=== PATIENT | male | born 1945 | race Caucasian/White ===

== ENCOUNTER 2024-11-24 03:37 | Inpatient (IN) | payer MEDICARE ==
--- NOTE | 2024-11-24 03:58 | ED ---
General Adult HPI - General Chief complaint: Weakness Stated complaint: Difficulty Breathing Time Seen by Provider: 11/24/24 04:00 Source: patient, RN notes reviewed, old records reviewed Mode of arrival: EMS Limitations: no limitations - History of Present Illness Initial comments: Patient is a 79-year-old male with past medical history markable for dementia, CAD, hyperlipidemia, hypertension, tremor. Presented to outside hospital, [place] for altered mentation and hypoxia. This has been ongoing for 2 weeks. Patient was transferred here for further evaluation after being diagnosed with sepsis and pneumonia. Patient presented to the outside facility with 2 SIRS criteria, hypoxia with increased work of breathing as well as fever. Patient was also tachycardic. Patient diagnosed with septic pneumonia and started on IV fluids, broad-spectrum antibiotics cefepime and vancomycin. CT brain obtained at the outside facility negative. Labs otherwise unremarkable. Viral swabs negative. Patient transferred here for further care. He is DNR based on paperwork from outside facility which was confirmed with patient's . Patient currently resting comfortably no acute acute distress. Appears to be at his baseline mental status of ANO x 2-3. Presents for further evaluation. - Related Data Allergies Allergy/AdvReac Type Severity Reaction Status Date / Time No Known Allergies Allergy Verified 11/24/24 03:48 Review of Systems ROS Statement: Those systems with pertinent positive or pertinent negative responses have been documented in the HPI. Review of Systems: CONST: Denies fever EYES: Denies blurry vision ENT: Endorses congestion, cough C/V: Denies Chest pain RESP: Denies shortness of breath GI: Denies abdominal pain : Denies dysuria SKIN: Denies rash. MSK: Denies joint pain. NEURO: Denies headache ROS Other: All systems not noted in ROS Statement are negative. Past Medical History Past Medical History: Diabetes Mellitus, Hypertension, Renal Disease Additional Past Medical History / Comment(s): neuropathy, CKD, sleep apnea History of Any Multi-Drug Resistant Organisms: None Reported Additional Past Surgical History / Comment(s): neck surgery, Past Psychological History: Anxiety, Depression Smoking Status: Former smoker Past Alcohol Use History: None Reported Past Drug Use History: None Reported General Exam - General Exam Comments Initial Comments: General: Appears in no acute distress. HEAD: Normal with no signs of head trauma. EYES: PERRLA, EOMI, conjunctiva normal, no discharge. ENT: Hearing grossly intact, normal oropharynx. RESPIRATORY: Clear breath sounds bilaterally. No wheezes, rales, or rhonchi. Hypoxic on room air. Normoxic on 2 L nasal cannula oxygen. C/V: Regular rate and rhythm. S1 and S2 auscultated, no edema, peripheral pulses 2+ and intact throughout ABD: Abd is soft, nontender, nondistended EXT: Normal range of motion, no obvious deformity SKIN: No rashes or lesions observed on exposed skin. NEURO: Alert and oriented x 2-3 which is the baseline for him. Cranial nerves II-XII intact. No focal sensory or strength deficits. Limitations: no limitations Course Vital Signs 11/24/24 03:39 Temperature 97.6 F Pulse Rate 99 Respiratory 16 Rate Blood Pressure 132/98 O2 Sat by Pulse 96 Oximetry Medical Decision Making - Medical Decision Making Was pt. sent in by a medical professional or institution (, JOCELYN, CLINICAL REHABILITATION COORDINATOR, urgent care, hospital, or snf...) When possible be specific @ -No Did you speak to anyone other than the patient for history (EMS, parent, family, police, friend...)? What history was obtained from this source @ -Spoke with patient's , Yaima over the phone who confirmed patient is DNR and also corroborated the note from [facility]. Did you review nursing and triage notes (agree or disagree)? Why? @ -I reviewed and agree with nursing and triage notes Were old charts reviewed (outside hosp., previous admission, EMS record, old EKG, old radiological studies, urgent care reports/EKG's, snf records)? Report findings @ -Reviewed transfer paperwork from [facility]. This includes CT brain results which showed no evidence of acute intracranial process. Also of the workup which ultimately revealed patient's sepsis diagnosis from pneumonia. Patient has bibasilar pneumonia read on chest x-ray. Differential Diagnosis (chest pain, altered mental status, abdominal pain women, abdominal pain men, vaginal bleeding, weakness, fever, dyspnea, syncope, headache, dizziness, GI bleed, back pain, seizure, CVA, palpatations, mental health, musculoskeletal)? @ -Sepsis, pneumonia, COVID, flu, RSV. This list is not all inclusive. EKG interpreted by me (3pts min.). @ -As above X-rays interpreted by me (1pt min.). @ -None done CT interpreted by me (1pt min.). @ -None done U/S interpreted by me (1pt. min.). @ -None done What testing was considered but not performed or refused? (CT, X-rays, U/S, labs)? Why? @ -None What meds were considered but not given or refused? Why? @ -None Did you discuss the management of the patient with other professionals (professionals i.e. , PA, CLINICAL REHABILITATION COORDINATOR, lab, RT, psych nurse, social work nurse, stonework tracer, teacher, structural engineering drafting officer, counseling case manager)? Give summary @ -Discussed with admitting provider, ELLI Delgado of [facility] who accepted the patient. Was smoking cessation discussed for >3mins.? @ -No Was critical care preformed (if so, how long)? @ -Yes, 31 minutes. Were there social determinants of health that impacted care today? How? (Homelessness, low income, unemployed, alcoholism, drug addiction, transportation, low edu. Level, literacy, decrease access to med. care, usp, rehab)? @ -No Was there de-escalation of care discussed even if they declined (Discuss DNR or withdrawal of care, Hospice)? DNR status @ -No What co-morbidities impacted this encounter? (DM, HTN, Smoking, COPD, CAD, Cancer, CVA, ARF, Chemo, Hep., AIDS, mental health diagnosis, sleep apnea, morbid obesity)? @ -Dementia Was patient admitted / discharged? Hospital course, mention meds given and route, prescriptions, significant lab abnormalities, going to OR and other pertinent info. @ -Patient is a 79-year-old male transferred from [facility] for admission for hypoxic respiratory failure from pneumonia. Patient did meet sepsis criteria with 2 SIRS criteria, having a fever as well as tachycardia and increased work of breathing at the outside facility. Labs at the outside facility were reviewed, revealed normal lactic acid, negative viral swabs, no leukocytosis. Chest x-ray showed bibasilar infiltrates. CT brain unremarkable. Blood cultures were sent and patient was placed on vancomycin and cefepime as well as received 2 L fluid bolus and placed on maintenance fluids. Presents for further evaluation at this time. Patient is feeling improved at this time, with no acute distress. He is currently afebrile vitals are within acceptable limits on 2 L nasal cannula oxygen. Patient will be admitted to our facility. We will repeat basic labs and continue patient on vancomycin and cefepime. We also continued the patient on maintenance fluids at 130 cc an hour. I spoke with the patient's , Yaima who corroborated the visit at [facility] as well as confirmed patient is DO NOT RESUSCITATE. I spoke with the admitting provider, ELLI Delgado of [facility] who accepted the admission. Laboratory studies returned unremarkable including undetectable troponin. Troponin was difficult to obtain at outside facility due to lab issues. Undiagnosed new problem with uncertain prognosis? @ -No Drug Therapy requiring intensive monitoring for toxicity (Heparin, Nitro, Insulin, Cardizem)? @ -No Were any procedures done? @ -No Diagnosis/symptom? @ -Hypoxic respiratory failure from pneumonia, sepsis Acute, or Chronic, or Acute on Chronic? @ -Acute Uncomplicated (without systemic symptoms) or Complicated (systemic symptoms)? @ -Complicated Side effects of treatment? @ -No Exacerbation, Progression, or Severe Exacerbation? @ -No Poses a threat to life or bodily function? How? (Chest pain, [place], [place], pneumonia, PE, COPD, DKA, ARF, appy, cholecystitis, CVA, Diverticulitis, Homicidal, Suicidal, threat to staff... and all critical care pts) @ -Yes - Lab Data Result diagrams: 11/24/24 04:00 11/24/24 04:00 Lab Results 11/24/24 11/24/24 11/24/24 Range/Units 04:00 04:00 04:15 WBC 10.0 (3.8-10.6) k/uL RBC 3.52 L (4.30-5.90) m/uL Hgb 9.4 L (13.0-17.5) gm/dL Hct 29.1 L (39.0-53.0) % MCV 82.7 (80.0-100.0) fL MCH 26.8 (25.0-35.0) pg MCHC 32.4 (31.0-37.0) g/dL RDW 13.6 (11.5-15.5) % Plt Count 320 (150-450) k/uL MPV 8.1 Neutrophils % 72 % Lymphocytes % 16 % Monocytes % 9 % Eosinophils % 1 % Basophils % 0 % Neutrophils # 7.3 (1.3-7.7) k/uL Lymphocytes # 1.6 (1.0-4.8) k/uL Monocytes # 0.9 (0-1.0) k/uL Eosinophils # 0.1 (0-0.7) k/uL Basophils # 0.0 (0-0.2) k/uL Hypochromasia Slight Sodium 135 L (137-145) mmol/L Potassium 3.8 (3.5-5.1) mmol/L Chloride 97 L (98-107) mmol/L Carbon Dioxide 33 H (22-30) mmol/L Anion Gap 5 mmol/L BUN 8 L (9-20) mg/dL Creatinine 0.95 (0.66-1.25) mg/dL Est GFR (CKD-EPI)AfAm 88 (>60 ml/min/1.73 sqM) Est GFR (CKD-EPI)NonAf 76 (>60 ml/min/1.73 sqM) Glucose 132 H (74-99) mg/dL Plasma Lactic Acid Travon (0.7-2.0) mmol/L Calcium 9.6 (8.4-10.2) mg/dL Total Bilirubin 0.9 (0.2-1.3) mg/dL AST 18 (17-59) U/L ALT 14 (4-49) U/L Alkaline Phosphatase 143 H (38-126) U/L Troponin I <0.012 (0.000-0.034) ng/mL Total Protein 5.2 L (6.3-8.2) g/dL Albumin 2.3 L (3.5-5.0) g/dL 11/24/24 Range/Units 04:15 WBC (3.8-10.6) k/uL RBC (4.30-5.90) m/uL Hgb (13.0-17.5) gm/dL Hct (39.0-53.0) % MCV (80.0-100.0) fL MCH (25.0-35.0) pg MCHC (31.0-37.0) g/dL RDW (11.5-15.5) % Plt Count (150-450) k/uL MPV Neutrophils % % Lymphocytes % % Monocytes % % Eosinophils % % Basophils % % Neutrophils # (1.3-7.7) k/uL Lymphocytes # (1.0-4.8) k/uL Monocytes # (0-1.0) k/uL Eosinophils # (0-0.7) k/uL Basophils # (0-0.2) k/uL Hypochromasia Sodium (137-145) mmol/L Potassium (3.5-5.1) mmol/L Chloride (98-107) mmol/L Carbon Dioxide (22-30) mmol/L Anion Gap mmol/L BUN (9-20) mg/dL Creatinine (0.66-1.25) mg/dL Est GFR (CKD-EPI)AfAm (>60 ml/min/1.73 sqM) Est GFR (CKD-EPI)NonAf (>60 ml/min/1.73 sqM) Glucose (74-99) mg/dL Plasma Lactic Acid Travon 1.0 (0.7-2.0) mmol/L Calcium (8.4-10.2) mg/dL Total Bilirubin (0.2-1.3) mg/dL AST (17-59) U/L ALT (4-49) U/L Alkaline Phosphatase (38-126) U/L Troponin I (0.000-0.034) ng/mL Total Protein (6.3-8.2) g/dL Albumin (3.5-5.0) g/dL - EKG Data -: EKG Interpreted by Me EKG Comments: 12-lead Electrocardiogram Interpretation Note EKG was reviewed and interpreted by myself. 12-lead ECG performed at 0352 is interpreted by me as revealing sinus tachycardia with first-degree AV block at a rate of 101 beats per minute. Allen is normal. [place] interval is 225 ms, QRS duration is 97 ms, QTc is 423 ms.. There were no ST or T wave abnormalities to suggest myocardial ischemia or injury. R wave progression across the precordium was satisfactory. By my interpretation this EKG is non-diagnostic for acute ischemia. Critical Care Time Critical Care Time: Yes Total Critical Care Time: 31 Disposition Clinical Impression: Hypoxic respiratory failure, Pneumonia, Sepsis Disposition: ADMITTED IP TO THIS HOSP Condition: Serious Time of Disposition: 04:20
[2024-11-24] MEDS: LACTATED RINGERS 1,000 ML IV ONE (04:04)
[2024-11-24] MEDS ORDERED: VANCOMYCIN IV PER PHARMACY 1 EACH MISC MISCELLANE PRN (04:10)
[2024-11-24 04:17] LABS: Basophils % (A) 0 %; Eosinophils # (A) 0.1 k/uL (0-0.7); Eosinophils % (A) 1 %; HCT 29.1 % (39.0-53.0); HGB 9.4 gm/dL (13.0-17.5); Hypochromasia Slight; Lymphocytes # (A) 1.6 k/uL (1.0-4.8); Lymphocytes % (A) 16 %; MCH 26.8 pg (25.0-35.0); MCHC 32.4 g/dL (31.0-37.0); MCV 82.7 fL (80.0-100.0); Mean Platelet Volume 8.1; Monocytes # (A) 0.9 k/uL (0-1.0); Monocytes % (A) 9 %; Neutrophils # (A) 7.3 k/uL (1.3-7.7); Neutrophils % (A) 72 %; Platelet Count 320 k/uL (150-450); RBC 3.52 m/uL (4.30-5.90); RDW 13.6 % (11.5-15.5)
[2024-11-24] MEDS ORDERED: NALOXONE 0.4 MG/ML 1 ML VIAL IV PRN (04:19)
[2024-11-24] MEDS ORDERED: ONDANSETRON 4 MG/2 ML VIAL IVP PRN (04:19)
[2024-11-24] MEDS: CEFEPIME 2 GM in SODIUM CHLORIDE 0.9% 100 ML IVPB STA (04:32)
[2024-11-24 04:42] LABS: ALT 14 U/L (4-49); AST 18 U/L (17-59); African American GFR (CKD) 88 (>60 ml/min/1.73 sqM); Albumin 2.3 g/dL (3.5-5.0); Alkaline Phosphatase 143 U/L (38-126); Anion Gap 5 mmol/L; Blood Urea Nitrogen 8 mg/dL (9-20); Calcium 9.6 mg/dL (8.4-10.2); Carbon Dioxide 33 mmol/L (22-30); Chloride 97 mmol/L (98-107); Glucose 132 mg/dL (74-99); Non-African American GFR(CKD) 76 (>60 ml/min/1.73 sqM); Potassium 3.8 mmol/L (3.5-5.1); Sodium 135 mmol/L (137-145); Total Bilirubin 0.9 mg/dL (0.2-1.3); Total Protein 5.2 g/dL (6.3-8.2)
[2024-11-24] MEDS: VANCOMYCIN 1,500 MG in SODIUM CHLORIDE 0.9% 250 ML IVPB STA (04:47)
[2024-11-24] MEDS: VANCOMYCIN 1,500 MG in SODIUM CHLORIDE 0.9% 500 ML IVPB STA (05:48)
[2024-11-24] MEDS ORDERED: CEFEPIME 2 GM in SODIUM CHLORIDE 0.9% 100 ML IVPB SCH ×2 (06:00→08:00)
[2024-11-24] MEDS: HEPARIN SODIUM,PORCINE 5,000 UNIT/ML 1 ML VIAL SQ SCH ×2 (08:08→17:36)
[2024-11-24 10:46] LABS: Influenza A Not Detected (Not Detectd); Influenza B Not Detected (Not Detectd); RSV Not Detected (Not Detectd)
--- NOTE | 2024-11-24 14:04 | P.CNPUL ---
History of Present Illness Consult date: 11/24/24 Reason for consult: dyspnea History of present illness: This is a 79-year-old male patient, a very poor historian with underlying dementia who presents from [facility] for bilateral pneumonia. The patient apparently has been feeling sick for the past 1 week at least. Family noted that he has been slightly more confused and he has been having labored breathing and was somewhat tachycardic. Based on that, the patient was started on broad-spectrum antibiotics in the outside facility and he was transferred to us. CAT scan of the brain that was done outside facility showed no acute abnormalities. I repeated the chest x-ray in the emergency department and based on my review, the patient has evidence of COPD and possibility of limited bibasilar pulmonary filtrates cannot be completely ruled out. Viral 4 Plex has been negative. Troponin has been negative. Sodium levels at 135, bicarbonate 33 BUN of 8 creatinine 0.9. LFTs are normal. White cell count of 10 with a hemoglobin 9.4. He was started on broad-spectrum antibiotics and the patient is currently on a combination of cefepime and vancomycin. The patient himself denies having any shortness of breath. He is currently on 2 L of oxygen by nasal cannula with pulse ox of 97%. Afebrile. Hemodynamically stable. Pulse ox on room air is 95%. Cultures were sent. Hospitalized for pneumonia. No edema in lower extremities. He is known to have CAD, hyperlipidemia, hypertension along with history of dementia. He also admits to have a previous neck surgery. He does have an abdominal wall ventral hernia. Review of Systems Constitutional: Reports as per HPI Eyes: denies as per HPI, denies blurred vision, denies bulging eye, denies decreased vision, denies diplopia, denies discharge, denies dry eye, denies irritation, denies itching, denies pain, denies photophobia, denies loss of peripheral vision, denies loss of vision, denies tunnel vision/blind spots Ears: deny: decreased hearing, ear discharge, earache, tinnitus Ears, nose, mouth and throat: Reports as per HPI Breasts: absent: as per HPI, gynecomastia Cardiovascular: Reports as per HPI Respiratory: Reports as per HPI Gastrointestinal: Reports as per HPI Genitourinary: Reports as per HPI Musculoskeletal: absent: ankle pain, ankle stiffness, ankle swelling, as per HPI, elbow pain, elbow stiffness, elbow swelling, foot pain, foot stiffness, foot swelling, hand pain, hand stiffness, hand swelling, hip pain, hip stiffness, hip swelling, knee pain, knee stiffness, knee swelling, shoulder pain, shoulder stiffness, shoulder swelling, wrist pain, wrist stiffness, wrist swelling Integumentary: Reports as per HPI Neurological: Reports as per HPI Psychiatric: Reports as per HPI Endocrine: Reports as per HPI Hematologic/Lymphatic: Reports as per HPI Allergic/Immunologic: Reports as per HPI Past Medical History Past Medical History: Coronary Artery Disease (CAD), Diabetes Mellitus, Hyperlipidemia, Hypertension Additional Past Medical History / Comment(s): neuropathy, ANABELA, Dementia, ventral abdominal hernia History of Any Multi-Drug Resistant Organisms: None Reported Additional Past Surgical History / Comment(s): neck surgery Past Psychological History: Anxiety, Depression Smoking Status: Former smoker Past Alcohol Use History: None Reported Past Drug Use History: None Reported Medications and Allergies Home Medications Medication Instructions Recorded Confirmed Type Citalopram Hydrobromide [CeleXA] 20 mg PO DAILY 11/24/24 11/24/24 History Gabapentin [Neurontin] 400 mg PO BID 11/24/24 11/24/24 History Metoprolol Succinate (ER) [Toprol 100 mg PO DAILY 11/24/24 11/24/24 History Xl] Simvastatin [Zocor] 80 mg PO DAILY 11/24/24 11/24/24 History allopurinoL [Zyloprim] 100 mg PO DAILY 11/24/24 11/24/24 History amLODIPine [Norvasc] 2.5 mg PO DAILY 11/24/24 11/24/24 History metFORMIN HCL 500 mg PO DAILY 11/24/24 11/24/24 History traMADol HCL 50 mg PO BID 11/24/24 11/24/24 History Allergies Allergy/AdvReac Type Severity Reaction Status Date / Time No Known Allergies Allergy Verified 11/24/24 09:15 Physical Exam Vitals: Vital Signs Temp Pulse Resp BP Pulse Ox 11/24/24 07:38 98.4 F 99 22 137/77 97 11/24/24 05:00 99 16 111/86 97 11/24/24 04:46 102 H 16 101/86 97 11/24/24 03:39 97.6 F 99 16 132/98 96 Intake and Output 0111/24/24 11/24/24 22:59 06:59 14:59 Other: Weight 97.976 kg The patient appeared well nourished and normally developed. Vital signs as documented. Currently on 2 L of oxygen by nasal cannula Head exam is unremarkable. No scleral icterus or corneal arcus noted. Neck is without jugular venous distension, thyromegaly, or carotid bruits. Carotid upstrokes are brisk bilaterally. Lungs diminished breath sound bilaterally along with few scattered expiratory rhonchi wheeze Cardiac exam reveals the PMI to be normally sized and situated. Rhythm is regular. First and second heart sounds normal. No murmurs, rubs or gallops. Abdominal exam reveals normal bowel sounds, no masses, no organomegaly and no aortic enlargement. Extremities are nonedematous and both femoral and pedal pulses are normal. Examination of the skin revealed no evidence of significant rashes, suspicious appearing nevi or other concerning lesions. Neurologically, the patient is awake and alert and the patient does not have any focal neurological deficit. Cranial nerves are essentially intact. Poor historian, some cognitive impairment. Results - Laboratory Findings CBC and BMP: 11/24/24 04:00 11/24/24 04:00 Abnormal lab findings: Abnormal Labs 11/24/24 11/24/24 04:00 04:00 RBC 3.52 L Hgb 9.4 L Hct 29.1 L Sodium 135 L Chloride 97 L Carbon Dioxide 33 H BUN 8 L Glucose 132 H Alkaline Phosphatase 143 H Total Protein 5.2 L Albumin 2.3 L - Diagnostic Findings Chest x-ray: image reviewed Assessment and Plan Plan: Right lower lobe/bibasilar pneumonia, chronicity is unknown. COPD with bilateral emphysematous changes based on chest x-ray findings Acute hypoxic respiratory failure currently on 2 L of oxygen by nasal cannula Dementia Coronary artery disease which is currently inactive and stable. Cardiac rhythm is sinus Diabetes mellitus type 2 Hypertension Hyperlipidemia Diabetic peripheral neuropathy Ventral abdominal wall hernia Plan Obtain sputum Gram stain and culture Obtain blood cultures Procalcitonin level Continue current robotic coverage Provide DuoNeb nebulized treatments [id number] Resume home medications Will follow
--- NOTE | 2024-11-24 14:08 | XR ---
EXAMINATION TYPE: XR chest 2V DATE OF EXAM: 11/24/2024 1:55 PM COMPARISON: 11/23/2024 [facility] CLINICAL INDICATION: Male, 79 years old with history of Pneumonia, TECHNIQUE: XR chest 2V view(s) obtained. FINDINGS: The heart size is normal. The pulmonary vasculature is normal. There may be some mild infiltrate in the right lower lobe. Some minimal subsegmental atelectasis at t he left base.. IMPRESSION: 1. Mild bibasilar infiltrates. Correlate for subsegmental atelectasis or developing pneumonia. Follow -up can be performed as clinically indicated. [facility], , 11/24/2024 2:05 PM
[2024-11-24] MEDS: CEFEPIME 2 GM in SODIUM CHLORIDE 0.9% 100 ML IVPB SCH (14:13)
[2024-11-24] MEDS: GABAPENTIN 400 MG CAP PO SCH (14:14)
--- NOTE | 2024-11-24 14:15 | P.HPIM ---
History of Present Illness Patient was on 79-year-old male with known history of dementia with baseline mental status alert oriented x 3 and presently alert oriented x 3 was transferred from [facility] as he had some altered mental status today and was believed to have bilateral pneumonia. Patient apparently had fever yesterday patient had a chest x-ray here which showed likely atelectasis in the right lower lobe. Patient does not have any labored breathing at this time. Patient was started on cefepime and vancomycin was subsequently transferred here patient is able to provide good history to me. Cultures were sent. Patient had a CAT scan of the brain that was done at outside hospital which is essentially within normal limits no acute changes. REVIEW OF SYSTEMS: All other systems are negative except those mentioned in the HPI PHYSICAL EXAMINATION: GENERAL: The patient is alert and oriented x2, not in any acute distress. Well developed, well nourished. HEENT: Pupils are round and equally reacting to light. EOMI. No scleral icterus. No conjunctival pallor. Normocephalic, atraumatic. No pharyngeal erythema. No thyromegaly. CARDIOVASCULAR: S1 and S2 present. No murmurs, rubs, or gallops. PULMONARY: Chest is clear to auscultation, no wheezing or crackles. ABDOMEN: Soft, nontender, nondistended, normoactive bowel sounds. No palpable organomegaly. MUSCULOSKELETAL: No joint swelling or deformity. EXTREMITIES: No cyanosis, clubbing, or pedal edema. NEUROLOGICAL: Gross neurological examination did not reveal any focal deficits. SKIN: No rashes. Assessment and plan -Altered mental status probably secondary to fever which resolved at this time. -Possibility of pneumonia: There is right lower lung field atelectasis and I cannot rule out pneumonia procalcitonin will be ordered vancomycin and cefepime will be discontinued and patient will be started on ceftriaxone and azithromycin, incentive spirometry will be ordered -Dementia patient mental status at this time is at his baseline patient appears to have moderate dementia -Coronary disease -Type 2 diabetes mellitus -Hypertension -Diabetic peripheral neuropathy for which patient is on gabapentin which will make it as needed as patient confusion improved DVT prophylaxis: Subcutaneous heparin Past Medical History Past Medical History: Coronary Artery Disease (CAD), Diabetes Mellitus, Hyper lipidemia, Hypertension Additional Past Medical History / Comment(s): neuropathy, ANABELA, Dementia, ventral abdominal hernia History of Any Multi-Drug Resistant Organisms: None Reported Additional Past Surgical History / Comment(s): neck surgery Past Psychological History: Anxiety, Depression Smoking Status: Former smoker Past Alcohol Use History: None Reported Past Drug Use History: None Reported Medications and Allergies Home Medications Medication Instructions Recorded Confirmed Type Citalopram Hydrobromide [CeleXA] 20 mg PO DAILY 11/24/24 11/24/24 History Gabapentin [Neurontin] 400 mg PO BID 11/24/24 11/24/24 History Metoprolol Succinate (ER) [Toprol 100 mg PO DAILY 11/24/24 11/24/24 History Xl] Simvastatin [Zocor] 80 mg PO DAILY 11/24/24 11/24/24 History allopurinoL [Zyloprim] 100 mg PO DAILY 11/24/24 11/24/24 History amLODIPine [Norvasc] 2.5 mg PO DAILY 11/24/24 11/24/24 History metFORMIN HCL 500 mg PO DAILY 11/24/24 11/24/24 History traMADol HCL 50 mg PO BID 11/24/24 11/24/24 History Allergies Allergy/AdvReac Type Severity Reaction Status Date / Time No Known Allergies Allergy Verified 11/24/24 09:15 Physical Exam Vitals: Vital Signs Temp Pulse Resp BP Pulse Ox 11/24/24 11:57 98 17 131/78 95 11/24/24 07:38 98.4 F 99 22 137/77 97 11/24/24 05:00 99 16 111/86 97 11/24/24 04:46 102 H 16 101/86 97 11/24/24 03:39 97.6 F 99 16 132/98 96 Intake and Output 11/23/24 11/24/24 11/24/24 22:59 06:59 14:59 Other: Weight 97.976 kg Results CBC & Chem 7: 11/24/24 04:00 11/24/24 04:00 Labs: Abnormal Lab Results - Last 24 Hours (Table) 11/24/24 11/24/24 Range/Units 04:00 04:00 RBC 3.52 L (4.30-5.90) m/uL Hgb 9.4 L (13.0-17.5) gm/dL Hct 29.1 L (39.0-53.0) % Sodium 135 L (137-145) mmol/L Chloride 97 L (98-107) mmol/L Carbon Dioxide 33 H (22-30) mmol/L BUN 8 L (9-20) mg/dL Glucose 132 H (74-99) mg/dL Alkaline Phosphatase 143 H (38-126) U/L Total Protein 5.2 L (6.3-8.2) g/dL Albumin 2.3 L (3.5-5.0) g/dL
[2024-11-24] MEDS: METOPROLOL SUCCINATE (ER) 100 MG TAB.ER.24H PO SCH (14:58)
[2024-11-24] MEDS: AZITHROMYCIN 500 MG TAB PO SCH (14:58)
[2024-11-24] MEDS: metFORMIN 500 MG TAB PO SCH (14:58)
[2024-11-24] MEDS: CITALOPRAM HYDROBROMIDE 20 MG TAB PO SCH (14:58)
[2024-11-24 16:42] LABS: Glucose,Whole Blood 153 mg/dL (70-110)
[2024-11-24] MEDS: IPRATROPIUM-ALBUTEROL 3 ML NEB INHALATION SCH (17:14)
[2024-11-24] MEDS ORDERED: VANCOMYCIN 1,500 MG in SODIUM CHLORIDE 0.9% 500 ML 500 ML IVPB SCH (18:00)
[2024-11-24 21:15] LABS: Glucose,Whole Blood 153 mg/dL (70-110)
[2024-11-24] MEDS: ZINC OXIDE PASTE (Z-GUARD) 1 APPLIC TOPICAL SCH (23:20)
[2024-11-25 09:30] LABS: Basophils # (A) 0.03 X 10*3/uL (0.00-0.10); Basophils % (A) 0.3 %; Eosinophils # (A) 0.03 X 10*3/uL (0.04-0.35); Eosinophils % (A) 0.3 %; HCT 30.6 % (39.6-50.0); HGB 9.4 g/dL (13.0-17.0); Lymphocytes # (A) 0.81 X 10*3/uL (0.90-5.00); MCH 25.5 pg (27.0-32.0); MCHC 30.7 g/dL (32.0-37.0); MCV 82.9 FL (80.0-97.0); Mean Platelet Volume 10.4 FL (9.5-12.2); Monocytes # (A) 1.36 X 10*3/uL (0.20-1.00); Monocytes % (A) 13.4 %; NRBC Per 100 WBC 0 X 10*3/uL (0.00-0.01); Neutrophils # (A) 7.85 X 10*3/uL (1.80-7.70); Neutrophils % (A) 77.2 %; Platelet Count 351 X 10*3/uL (140-440); RBC 3.69 X 10*6/uL (4.40-5.60); RDW 13.5 % (11.5-14.5); WBC 10.16 X 10*3/uL (4.50-10.00)
[2024-11-25 09:40] LABS: BUN/Creat Ratio 8.33 Ratio (12.00-20.00); Blood Urea Nitrogen 7.5 mg/dL (9.0-27.0); Chloride 97 mmol/L (96-109); Glucose 144 mg/dL (70-110); Potassium 3.4 mmol/L (3.5-5.5); Sodium 138 mmol/L (135-145)
[2024-11-25 09:41] LABS: ALT 13 U/L (10-49); AST 17 U/L (14-35); Albumin 2.7 g/dL (3.8-4.9); Albumin/Globulin Ratio 1.04 Ratio (1.60-3.17); Alkaline Phosphatase 135 U/L (41-126); Calcium 9.8 mg/dL (8.7-10.3); Carbon Dioxide 28.4 mmol/L (21.6-31.8); Globulin 2.6 g/dL (1.6-3.3); Total Bilirubin 0.7 mg/dL (0.3-1.2); Total Protein 5.3 g/dL (6.2-8.2)
--- NOTE | 2024-11-25 09:58 | XR ---
EXAMINATION TYPE: XR chest 1V DATE OF EXAM: 11/25/2024 6:50 AM COMPARISON: 11/24/2024 CLINICAL INDICATION: Male, 79 years old with history of pneumonia, TECHNIQUE: XR chest 1V view(s) obtained. FINDINGS: The heart size is normal. The pulmonary vasculature is normal. Left lower lobe infiltrate has resolved. Mild residual may remain at the right base. IMPRESSION: 1. Mild residual right lower lobe infiltrate [facility], , 11/25/2024 9:55 AM
[2024-11-25] MEDS: allopurinoL 100 MG TAB PO SCH (11:03)
[2024-11-25] MEDS: ATORVASTATIN 40 MG TAB PO SCH (11:04)
[2024-11-25] MEDS: GABAPENTIN 400 MG CAP PO PRN (11:09)
[2024-11-25] MEDS: ACETAMINOPHEN TAB 325 MG TAB PO PRN (11:09)
[2024-11-25 11:36] LABS: Glucose,Whole Blood 169 mg/dL (70-110)
--- NOTE | 2024-11-25 13:13 | P.PN ---
Subjective Progress Note Date: 11/25/24 This is a 79-year-old male patient, a very poor historian with underlying dementia who presents from [facility] for bilateral pneumonia. The patient apparently has been feeling sick for the past 1 week at least. Family noted that he has been slightly more confused and he has been having labored breathing and was somewhat tachycardic. Based on that, the patient was started on broad-spectrum antibiotics in the outside facility and he was transferred to us. CAT scan of the brain that was done outside facility showed no acute abnormalities. I repeated the chest x-ray in the emergency department and based on my review, the patient has evidence of COPD and possibility of limited bibasilar pulmonary filtrates cannot be completely ruled out. Viral 4 Plex has been negative. Troponin has been negative. Sodium levels at 135, bicarbonate 33 BUN of 8 creatinine 0.9. LFTs are normal. White cell count of 10 with a hemoglobin 9.4. He was started on broad-spectrum antibiotics and the patient is currently on a combination of cefepime and vancomycin. The patient himself denies having any shortness of breath. He is currently on 2 L of oxygen by nasal cannula with pulse ox of 97%. Afebrile. Hemodynamically stable. Pulse ox on room air is 95%. Cultures were sent. Hospitalized for pneumonia. No edema in lower extremities. He is known to have CAD, hyperlipidemia, hypertension along with history of dementia. He also admits to have a previous neck surgery. He does have an abdominal wall ventral hernia. 11/25/2024, patient is being seen for a follow-up. This 79-year-old male patient, has underlying dementia. He was hospitalized for pneumonia. He did have some limited sensation of the lung base bilaterally and he was placed on a combination of Zosyn and vancomycin. Repeat chest x-ray from today shows some mild residual right lower lobe pulmonary filtrate. Left lower lobe pulmonary filtrate is essentially covered. He is resting comfortably in bed. Remains a poor historian. Remains on 2 L of oxygen by nasal cannula. The white cell count is at 7 with a hemoglobin 9.4. The platelet count is at 351. Sodium is at 138, BUN is at 7.5 with a creatinine of 0.9. Hemodynamically stable. Denies having any complaints. Objective - Vital Signs Vital signs: Vital Signs Temp 98.6 F 11/25/24 07:50 Pulse 90 11/25/24 09:30 Resp 16 11/25/24 07:50 BP 147/73 11/25/24 07:50 Pulse Ox 93 L 11/25/24 07:50 FiO2 Intake & Output 11/24/24 11/25/24 11/25/24 18:59 06:59 18:59 Intake Total 250 Balance 250 Weight 97.976 kg Intake: Oral 250 Other: Voiding Method Toilet Toilet # Voids 5 3 # Bowel Movements 1 - Exam The patient appeared well nourished and normally developed. Vital signs as doc umented. Currently on 2 L of oxygen by nasal cannula Head exam is unremarkable. No scleral icterus or corneal arcus noted. Neck is without jugular venous distension, thyromegaly, or carotid bruits. Carotid upstrokes are brisk bilaterally. Lungs diminished breath sound bilaterally along with few scattered expiratory rhonchi wheeze Cardiac exam reveals the PMI to be normally sized and situated. Rhythm is regular. First and second heart sounds normal. No murmurs, rubs or gallops. Abdominal exam reveals normal bowel sounds, no masses, no organomegaly and no aortic enlargement. Extremities are nonedematous and both femoral and pedal pulses are normal. Examination of the skin revealed no evidence of significant rashes, suspicious appearing nevi or other concerning lesions. Neurologically, the patient is awake and alert and the patient does not have any focal neurological deficit. Cranial nerves are essentially intact. Poor historian, some cognitive impairment. - Labs CBC & Chem 7: 11/25/24 03:42 11/25/24 03:42 Labs: Abnormal Lab Results - Last 24 Hours (Table) 11/24/24 11/24/24 11/25/24 Range/Units 16:41 21:13 03:42 WBC 10.16 H (4.50-10.00) X 10*3/uL RBC 3.69 L (4.40-5.60) X 10*6/uL Hgb 9.4 L (13.0-17.0) g/dL Hct 30.6 L (39.6-50.0) % MCH 25.5 L (27.0-32.0) pg MCHC 30.7 L (32.0-37.0) g/dL Immature Gran # 0.08 H (0.00-0.04) X 10*3/uL Neutrophils # 7.85 H (1.80-7.70) X 10*3/uL Lymphocytes # 0.81 L (0.90-5.00) X 10*3/uL Monocytes # 1.36 H (0.20-1.00) X 10*3/uL Eosinophils # 0.03 L (0.04-0.35) X 10*3/uL Potassium (3.5-5.5) mmol/L Anion Gap (4.00-12.00) mmol/L BUN (9.0-27.0) mg/dL BUN/Creatinine Ratio (12.00-20.00) Ratio Glucose (70-110) mg/dL POC Glucose (mg/dL) 153 H 153 H (70-110) mg/dL Alkaline Phosphatase (41-126) U/L Total Protein (6.2-8.2) g/dL Albumin (3.8-4.9) g/dL Albumin/Globulin Ratio (1.60-3.17) Ratio /11/07 Range/Units 03:42 WBC (4.50-10.00) X 10*3/uL RBC (4.40-5.60) X 10*6/uL Hgb (13.0-17.0) g/dL Hct (39.6-50.0) % MCH (27.0-32.0) pg MCHC (32.0-37.0) g/dL Immature Gran # (0.00-0.04) X 10*3/uL Neutrophils # (1.80-7.70) X 10*3/uL Lymphocytes # (0.90-5.00) X 10*3/uL Monocytes # (0.20-1.00) X 10*3/uL Eosinophils # (0.04-0.35) X 10*3/uL Potassium 3.4 L (3.5-5.5) mmol/L Anion Gap 12.60 H (4.00-12.00) mmol/L BUN 7.5 L (9.0-27.0) mg/dL BUN/Creatinine Ratio 8.33 L (12.00-20.00) Ratio Glucose 144 H (70-110) mg/dL POC Glucose (mg/dL) (70-110) mg/dL Alkaline Phosphatase 135 H (41-126) U/L Total Protein 5.3 L (6.2-8.2) g/dL Albumin 2.7 L (3.8-4.9) g/dL Albumin/Globulin Ratio 1.04 L (1.60-3.17) Ratio Assessment and Plan Plan: Right lower lobe/bibasilar pneumonia, chronicity is unknown. Clinically stable. Chest x-ray improving. COPD with bilateral emphysematous changes based on chest x-ray findings Acute hypoxic respiratory failure currently on 2 L of oxygen by nasal cannula Dementia Coronary artery disease which is currently inactive and stable. Cardiac rhythm is sinus Diabetes mellitus type 2 Hypertension Hyperlipidemia Diabetic peripheral neuropathy Ventral abdominal wall hernia Plan Chest x-ray shows improvement in the left lower lobe pulmonary infiltrate, right lower lobe is showing some minimal residual infiltration Obtain sputum Gram stain and culture Obtain blood cultures Procalcitonin level is at 0.25 Continue current robotic coverage Provide DuoNeb nebulized treatments [id number] Resume home medications Will follow
[2024-11-25 16:47] LABS: Glucose,Whole Blood 166 mg/dL (70-110)
[2024-11-25] MEDS: POTASSIUM CHLORIDE ER 20 MEQ TAB.ER PO STA (16:52)
--- NOTE | 2024-11-25 20:13 | P.PN ---
Subjective Progress Note Date: 11/25/24 Patient was on 79-year-old male with known history of dementia with baseline mental status alert oriented x 3 and presently alert oriented x 3 was transferred from [facility] as he had some altered mental status today and was believed to have bilateral pneumonia. Patient apparently had fever yes terday patient had a chest x-ray here which showed likely atelectasis in the right lower lobe. Patient does not have any labored breathing at this time. Patient was started on cefepime and vancomycin was subsequently transferred here patient is able to provide good history to me. Cultures were sent. Patient had a CAT scan of the brain that was done at outside hospital which is essentially within normal limits no acute changes. 11/25/2024 Patient evaluated today in follow up on the medical floor. Shortness of breath has improved. He does report feeing chills and febrile. Although there have been no documented fevers. He is currently on room air. Review of Systems Constitutional: Denied any fatigue denied any fever. Cardio vascular: denied any chest pain, palpitations Gastrointestinal: denied any nausea, vomiting, diarrhea Pulmonary: Denied any shortness of breath cough Neurologic denied any new focal deficits All inpatient medications were reviewed and appropriate changes in these medications as dictated in the interval history and assessment and plan. PHYSICAL EXAMINATION: GENERAL: The patient is alert and oriented x2, not in any acute distress. Well developed, well nourished. HEENT: Pupils are round and equally reacting to light. EOMI. No scleral icterus. No conjunctival pallor. Normocephalic, atraumatic. No pharyngeal erythema. No thyromegaly. CARDIOVASCULAR: S1 and S2 present. No murmurs, rubs, or gallops. PULMONARY: Chest is clear to auscultation, no wheezing or crackles. ABDOMEN: Soft, nontender, nondistended, normoactive bowel sounds. No palpable organomegaly. MUSCULOSKELETAL: No joint swelling or deformity. EXTREMITIES: No cyanosis, clubbing, or pedal edema. NEUROLOGICAL: Gross neurological examination did not reveal any focal deficits. SKIN: No rashes. Assessment and plan -Altered mental status probably secondary to fever which resolved at this time. -Possibility of pneumonia: There is right lower lung field atelectasis and I cannot rule out pneumonia procalcitonin 0.25, patient continues on ceftriaxone and azithromycin, incentive spirometry will be ordered -Dementia patient mental status at this time is at his baseline patient appears to have moderate dementia -Coronary disease -Type 2 diabetes mellitus -Hypertension -Diabetic peripheral neuropathy for which patient is on gabapentin which will make it as needed as patient confusion improved DVT prophylaxis: Subcutaneous heparin Pending PT/OT evaluation and discharge planning The impression and plan of care has been dictated by Yessica Wiley Nurse Practitioner as directed. Dr. Terri MD I have performed a history and physical examination and medical decision making of this patient, discussed the same with the dictator, and agree with the dictators assessment and plan as written, documented as a scribe. Based on total visit time, I have performed more than 50% of this visit. Objective - Vital Signs Vital signs: Vital Signs Temp 98.4 F 11/25/24 01:00 Pulse 90 11/25/24 09:30 Resp 15 11/25/24 01:00 BP 131/77 11/24/24 20:41 Pulse Ox 97 11/25/24 01:00 FiO2 Intake & Output 11/24/24 11/25/24 11/25/24 18:59 06:59 18:59 Intake Total 250 Balance 250 Weight 97.976 kg Intake: Oral 250 Other: Voiding Method Toilet Toilet # Voids 5 3 # Bowel Movements 1 - Labs CBC & Chem 7: 11/25/24 03:42 11/25/24 03:42 Labs: Abnormal Lab Results - Last 24 Hours (Table) 11/24/24 11/24/24 11/25/24 Range/Units 16:41 21:13 03:42 WBC 10.16 H (4.50-10.00) X 10*3/uL RBC 3.69 L (4.40-5.60) X 10*6/uL Hgb 9.4 L (13.0-17.0) g/dL Hct 30.6 L (39.6-50.0) % MCH 25.5 L (27.0-32.0) pg MCHC 30.7 L (32.0-37.0) g/dL Immature Gran # 0.08 H (0.00-0.04) X 10*3/uL Neutrophils # 7.85 H (1.80-7.70) X 10*3/uL Lymphocytes # 0.81 L (0.90-5.00) X 10*3/uL Monocytes # 1.36 H (0.20-1.00) X 10*3/uL Eosinophils # 0.03 L (0.04-0.35) X 10*3/uL POC Glucose (mg/dL) 153 H 153 H (70-110) mg/dL Assessment and Plan Time with Patient: Less than 30
[2024-11-26 10:44] LABS: Basophils % (A) 0 %; Eosinophils % (A) 0 %; HCT 31.1 % (39.0-53.0); HGB 9.8 gm/dL (13.0-17.5); Hypochromasia Slight; Lymphocytes # (A) 0.9 k/uL (1.0-4.8); Lymphocytes % (A) 9 %; MCHC 31.5 g/dL (31.0-37.0); MCV 82.6 fL (80.0-100.0); Mean Platelet Volume 8.4; Monocytes # (A) 0.9 k/uL (0-1.0); Monocytes % (A) 9 %; Neutrophils # (A) 7.6 k/uL (1.3-7.7); Neutrophils % (A) 80 %; Platelet Count 350 k/uL (150-450); RBC 3.76 m/uL (4.30-5.90); RDW 13.7 % (11.5-15.5); WBC 9.5 k/uL (3.8-10.6)
[2024-11-26 10:55] LABS: African American GFR (CKD) >90 (>60 ml/min/1.73 sqM); Anion Gap 3 mmol/L; Blood Urea Nitrogen 11 mg/dL (9-20); Calcium 10.1 mg/dL (8.4-10.2); Carbon Dioxide 36 mmol/L (22-30); Chloride 97 mmol/L (98-107); Glucose 201 mg/dL (74-99); Non-African American GFR(CKD) 82 (>60 ml/min/1.73 sqM); Potassium 3.7 mmol/L (3.5-5.1); Sodium 136 mmol/L (137-145)
[2024-11-26 11:32] LABS: Appearance,Urine Clear (Clear); Bilirubin,Urine Negative (Negative); Blood,Urine Negative (Negative); Color,Urine Yellow; Glucose,Urine (UA) Negative (Negative); Ketones,Urine Negative (Negative); Leukocyte Esterase,Urine Negative (Negative); Nitrite,Urine Negative (Negative); Protein,Urine Trace (Negative); Specific Gravity,Urine 1.017 (1.001-1.035)
--- NOTE | 2024-11-26 13:55 | P.PN ---
Subjective Progress Note Date: 11/26/24 Principal diagnosis: Acute right lower lobe pneumonia, acute COPD exacerbation with acute hypoxic respiratory failure and underlying dementia. This is a 79-year-old male patient, a very poor historian with underlying dementia who presents from [facility] for bilateral pneumonia. The patient apparently has been feeling sick for the past 1 week at least. Family noted that he has been slightly more confused and he has been having labored breathing and was somewhat tachycardic. Based on that, the patient was started on broad-spectrum antibiotics in the outside facility and he was transferred to us. CAT scan of the brain that was done outside facility showed no acute abnormalities. I repeated the chest x-ray in the emergency department and based on my review, the patient has evidence of COPD and possibility of limited bibasilar pulmonary filtrates cannot be completely ruled out. Viral 4 Plex has been negative. Troponin has been negative. Sodium levels at 135, bicarbonate 33 BUN of 8 creatinine 0.9. LFTs are normal. White cell count of 10 with a he moglobin 9.4. He was started on broad-spectrum antibiotics and the patient is currently on a combination of cefepime and vancomycin. The patient himself denies having any shortness of breath. He is currently on 2 L of oxygen by nasal cannula with pulse ox of 97%. Afebrile. Hemodynamically stable. Pulse ox on room air is 95%. Cultures were sent. Hospitalized for pneumonia. No edema in lower extremities. He is known to have CAD, hyperlipidemia, hypertension along with history of dementia. He also admits to have a previous neck surgery. He does have an abdominal wall ventral hernia. 11/25/2024, patient is being seen for a follow-up. This 79-year-old male patient, has underlying dementia. He was hospitalized for pneumonia. He did have some limited sensation of the lung base bilaterally and he was placed on a combination of Zosyn and vancomycin. Repeat chest x-ray from today shows some mild residual right lower lobe pulmonary filtrate. Left lower lobe pulmonary filtrate is essentially covered. He is resting comfortably in bed. Remains a poor historian. Remains on 2 L of oxygen by nasal cannula. The white cell count is at 7 with a hemoglobin 9.4. The platelet count is at 351. Sodium is at 138, BUN is at 7.5 with a creatinine of 0.9. Hemodynamically stable. Denies having any complaints. Patient was seen today on 12/06/2024, patient doing much better today, breathing a lot easier, patient is on room air and O2 sat is 92%.WBC count is 9.5 hemoglobin 9.8 electrolytes are normal renal profile is normal, patient had procalcitonin level of 0.25, x-ray showed very limited infiltrate or atelectasis in the right lower lobe, clinically the patient is doing great, relatively asymptomatic, and I believe the patient could be transition to oral antibiotics and discharged home with follow-up on outpatient basis Objective - Vital Signs Vital signs: Vital Signs Temp 97.8 F 11/26/24 07:08 Pulse 69 11/26/24 07:08 Resp 18 11/26/24 08:48 BP 124/77 11/26/24 07:08 Pulse Ox 92 L 11/26/24 09:23 FiO2 Intake & Output 11/25/24 11/26/24 11/26/24 18:59 06:59 18:59 Intake Total 540 120 Balance 540 120 Intake: Oral 540 120 Other: Voiding Method Toilet Toilet Toilet # Voids 3 4 - Exam GENERAL: Revealed 79-year-old white male in no distress HEENT: PERRLA, EOMI, nonicteric, no neck masses no JVD CARDIOVASCULAR: S1 and S2 present. No murmurs, rubs, or gallops. PULMONARY: Clear throughout no crackles rhonchi or wheezes ABDOMEN: Soft, nontender, nondistended, normoactive bowel sounds. No palpable organomegaly. MUSCULOSKELETAL: No joint swelling or deformity. EXTREMITIES: No cyanosis, clubbing, or pedal edema. NEUROLOGICAL: Alert oriented x 3 no gross focal neurologic deficit SKIN: No rashes. - Labs CBC & Chem 7: 11/26/24 10:21 11/26/24 10:21 Labs: Abnormal Lab Results - Last 24 Hours (Table) 11/25/24 11/26/24 11/26/24 Range/Units 16:46 10:21 10:21 RBC 3.76 L (4.30-5.90) m/uL Hgb 9.8 L (13.0-17.5) gm/dL Hct 31.1 L (39.0-53.0) % Lymphocytes # 0.9 L (1.0-4.8) k/uL Sodium 136 L (137-145) mmol/L Chloride 97 L (98-107) mmol/L Carbon Dioxide 36 H (22-30) mmol/L Glucose 201 H (74-99) mg/dL POC Glucose (mg/dL) 166 H (70-110) mg/dL Urine Protein (Negative) 11/26/24 Range/Units 11:14 RBC (4.30-5.90) m/uL Hgb (13.0-17.5) gm/dL Hct (39.0-53.0) % Lymphocytes # (1.0-4.8) k/uL Sodium (137-145) mmol/L Chloride (98-107) mmol/L Carbon Dioxide (22-30) mmol/L Glucose (74-99) mg/dL POC Glucose (mg/dL) (70-110) mg/dL Urine Protein Trace H (Negative) Assessment and Plan Assessment: Impression: Acute COPD exacerbation Possible right lower lobe pneumonia, I suspect mostly right lower lobe atelectasis or very limited infiltrate in the right lower lobe Acute hypoxic respiratory failure secondary to above History of underlying dementia Type 2 diabetes with diabetic peripheral neuropathy History of underlying coronary artery disease Benign essential hypertension Ventral abdominal wall hernia Recommendation: His lungs sound fairly clear today, made a significant improvement since admission Continue present supportive care measures Consider transitioning the patient to oral antibiotics/Z-Mateo, Transition steroids to oral prednisone burst and taper Continue bronchodilators Consider discharging the patient home and follow-up on outpatient basis Time with Patient: Less than 30
--- NOTE | 2024-11-26 21:17 | P.CONS ---
History of Present Illness - Reason for Consult Consult date: 11/26/24 Fever Requesting physician: Yessica Wiley - Chief Complaint Fever any shortness of breath x days - History of Present Illness Patient is a 79-year-old male with a past medical history significant for coronary disease diabetes mellitus hypertension hyperlipidemia anxiety depression presenting to the hospital 2 days ago for evaluation of altered mentation and hypoxemia in this patient symptom that has been going on for about 2 weeks before the patient initially presented to [facility] and subsequently transferred to [facility] patient apparently had difficulty breathing as well as fever and was tachycardic patient on presentation to this facility was afebrile he did spike a fever this morning of 100.6 F patient was not tachycardic hypotensive, he did have some hypoxemia documented however currently on room air patient did have white count 10.16 with a left shift creatinine 0.9 liver isms are normal procalcitonin 0.25 influenza RSV COVID testing negative UA was negative patient did have chest x-ray mild bibasilar infiltrate correlate for subsegmental atelectasis or developing pneumonia repeat x-ray with mild residual right lower lobe infiltrate patient was on Rocephin and that has been discontinued and subsequently ID was consulted because of the fever patient himself not a very good historian when asked specifically denies any chest pain he did have some cough not been any sputum, oral taking the stool for no vomiting or diarrhea reported by the nursing staff Review of Systems Positive point and negatives has been mentioned in the HPI, complete review of systems was performed and all other systems are negative Past Medical History Past Medical History: Coronary Artery Disease (CAD), Diabetes Mellitus, Hyperlipidemia, Hypertension Additional Past Medical History / Comment(s): neuropathy, ANABELA, Dementia, ventral abdominal hernia, gout History of Any Multi-Drug Resistant Organisms: None Reported Additional Past Surgical History / Comment(s): neck surgery Past Psychological History: Anxiety, Depression Smoking Status: Former smoker Past Alcohol Use History: None Reported Past Drug Use History: None Reported Medications and Allergies Home Medications Medication Instructions Recorded Confirmed Type Citalopram Hydrobromide [CeleXA] 20 mg PO DAILY 11/24/24 11/24/24 History Gabapentin [Neurontin] 400 mg PO BID 11/24/24 11/24/24 History Metoprolol Succinate (ER) [Toprol 100 mg PO DAILY 11/24/24 11/24/24 History Xl] Simvastatin [Zocor] 80 mg PO DAILY 11/24/24 11/24/24 History allopurinoL [Zyloprim] 100 mg PO DAILY 11/24/24 11/24/24 History amLODIPine [Norvasc] 2.5 mg PO DAILY 11/24/24 11/24/24 History metFORMIN HCL 500 mg PO DAILY 11/24/24 11/24/24 History traMADol HCL 50 mg PO BID 11/24/24 11/24/24 History Allergies Allergy/AdvReac Type Severity Reaction Status Date / Time No Known Allergies Allergy Verified 11/24/24 09:15 Physical Exam Vitals: Vital Signs Temp Pulse Pulse Resp BP BP Pulse Ox 11/26/24 13:31 97.6 F 107 H 16 127/67 94 L 11/26/24 09:23 92 L 11/26/24 08:48 18 11/26/24 07:08 97.8 F 69 17 124/77 91 L 11/26/24 05:56 98.0 F 11/26/24 04:47 100.6 F H 103 H 19 134/77 94 L 11/25/24 21:00 20 11/25/24 20:51 92 11/25/24 20:40 92 11/25/24 19:10 99.7 F H 71 20 165/72 96 Intake and Output 11/25/24 11/26/24 11/26/24 22:59 06:59 14:59 Intake Total 540 420 Balance 540 420 Intake: Oral 540 420 Other: Voiding Method Toilet Toilet # Voids 3 4 GENERAL DESCRIPTION: Elderly male lying in bed, no distress. No tachypnea or accessory muscle of respiration use. HEENT: Shows Pallor , no scleral icterus. Oral mucous membrane is dry. NECK: Trachea central, no thyromegaly. LUNGS: Unlabored breathing. Decreased breath sound the base HEART: S1, S2, regular rate and rhythm. No loud murmur ABDOMEN: Soft, no tenderness , EXTREMITIES: No edema of feet. SKIN: No rash, no masses palpable. NEUROLOGICAL: The patient is awake, mood and affect normal. Results CBC & Chem 7: 11/27/24 02:06 11/27/24 02:06 Labs: Abnormal Lab Results - Last 24 Hours (Table) 11/25/24 11/26/2425 Range/Units 16:46 10:21 10:21 RBC 3.76 L (4.30-5.90) m/uL Hgb 9.8 L (13.0-17.5) gm/dL Hct 31.1 L (39.0-53.0) % Lymphocytes # 0.9 L (1.0-4.8) k/uL Sodium 136 L (137-145) mmol/L Chloride 97 L (98-107) mmol/L Carbon Dioxide 36 H (22-30) mmol/L Glucose 201 H (74-99) mg/dL POC Glucose (mg/dL) 166 H (70-110) mg/dL Urine Protein (Negative) 11/26/24 Range/Units 11:14 RBC (4.30-5.90) m/uL Hgb (13.0-17.5) gm/dL Hct (39.0-53.0) % Lymphocytes # (1.0-4.8) k/uL Sodium (137-145) mmol/L Chloride (98-107) mmol/L Carbon Dioxide (22-30) mmol/L Glucose (74-99) mg/dL POC Glucose (mg/dL) (70-110) mg/dL Urine Protein Trace H (Negative) Assessment and Plan (1) Fever Current Visit: Yes Status: Acute Code(s): R50.9 - FEVER, UNSPECIFIED SNOMED Code(s): 727312317 Plan: 1patient with a fever in this patient with initial presentation to the [facility] concerning for fever and shortness of breath and there was concern for possible right lower lobe infiltrate and a question of possible pneumonia however antibiotics have been discontinued this morning patient currently denies any other obvious focus for this fever urine has been negative no evidence of any cellulitis and tested negative for COVID and influenza 2-blood culture has been obtained results will be followed 3-we will obtain CT abdominal pelvis to complete the workup that should also evaluate the right lower lobe for any consolidation 4-we will recheck inflammatory markers with a.m. lab We will follow on clinical condition and cultures to further adjust medication if needed Thank you for this consultation we will follow the patient along with you Dictation was produced using [employer] dictation software. please excuse any grammatical, word or spelling errors. Time with Patient: Greater than 30
--- NOTE | 2024-11-26 21:53 | P.PN ---
Subjective Progress Note Date: 11/26/24 Patient was on 79-year-old male with known history of dementia with baseline mental status alert oriented x 3 and presently alert oriented x 3 was transferred from [facility] as he had some altered mental status today and was believed to have bilateral pneumonia. Patient apparently had fever yes terday patient had a chest x-ray here which showed likely atelectasis in the right lower lobe. Patient does not have any labored breathing at this time. Patient was started on cefepime and vancomycin was subsequently transferred here patient is able to provide good history to me. Cultures were sent. Patient had a CAT scan of the brain that was done at outside hospital which is essentially within normal limits no acute changes. 11/25/2024 Patient evaluated today in follow up on the medical floor. Shortness of breath has improved. He does report feeing chills and febrile. Although there have been no documented fevers. He is currently on room air. 11/26/2024 Patient evaluated today in follow up resting in bed. Continues to have intermittent fevers. Was weaned to room air with oxygen saturations of 92%. Pending PT evaluation. White blood cell count 9.5. Urinalysis negative. Review of Systems Constitutional: Denied any fatigue denied any fever. Cardio vascular: denied any chest pain, palpitations Gastrointestinal: denied any nausea, vomiting, diarrhea Pulmonary: Denied any shortness of breath cough Neurologic denied any new focal deficits All inpatient medications were reviewed and appropriate changes in these medications as dictated in the interval history and assessment and plan. PHYSICAL EXAMINATION: GENERAL: The patient is alert and oriented x2, not in any acute distress. Well developed, well nourished. HEENT: Pupils are round and equally reacting to light. EOMI. No scleral icterus. No conjunctival pallor. Normocephalic, atraumatic. No pharyngeal erythema. No t hyromegaly. CARDIOVASCULAR: S1 and S2 present. No murmurs, rubs, or gallops. PULMONARY: Chest is clear to auscultation, no wheezing or crackles. ABDOMEN: Soft, nontender, nondistended, normoactive bowel sounds. No palpable organomegaly. MUSCULOSKELETAL: No joint swelling or deformity. EXTREMITIES: No cyanosis, clubbing, or pedal edema. NEUROLOGICAL: Gross neurological examination did not reveal any focal deficits. SKIN: No rashes. Assessment and plan -Altered mental status probably secondary to fever which resolved at this time. -Possibility of pneumonia: There is right lower lung field atelectasis and cannot rule out pneumonia procalcitonin 0.25, patient currently on azithromycin, incentive spirometry will be ordered -Dementia patient mental status at this time is at his baseline patient appears to have moderate dementia -Coronary disease -Type 2 diabetes mellitus -Hypertension -Diabetic peripheral neuropathy for which patient is on gabapentin which will make it as needed as patient confusion improved DVT prophylaxis: Subcutaneous heparin Pending PT/OT evaluation and discharge planning patient will likely require subacute rehab. ID consulted as patient continues to have intermittent fevers The impression and plan of care has been dictated by Yessica Wiley, Nurse Practitioner as directed. Dr. Terri MD I have performed a history and physical examination and medical decision making of this patient, discussed the same with the dictator, and agree with the dictators assessment and plan as written, documented as a scribe. Based on total visit time, I have performed more than 50% of this visit. Objective - Vital Signs Vital signs: Vital Signs Temp 98.8 F 11/26/24 19:55 Pulse 111 H 11/26/24 19:55 Resp 17 11/26/24 19:55 BP 145/66 11/26/24 19:55 Pulse Ox 92 L 11/26/24 19:55 FiO2 Intake & Output 11/26/24 11/26/24 11/27/24 06:59 18:59 06:59 Intake Total 540 420 Balance 540 420 Intake: Oral 540 420 Other: Voiding Method Toilet Toilet # Voids 4 3 - Labs CBC & Chem 7: 11/26/24 10:21 11/26/24 10:21 Labs: Abnormal Lab Results - Last 24 Hours (Table) 11/26/24 11/26/24 11/26/24 Range/Units 10:21 10:21 11:14 RBC 3.76 L (4.30-5.90) m/uL Hgb 9.8 L (13.0-17.5) gm/dL Hct 31.1 L (39.0-53.0) % Lymphocytes # 0.9 L (1.0-4.8) k/uL Sodium 136 L (137-145) mmol/L Chloride 97 L (98-107) mmol/L Carbon Dioxide 36 H (22-30) mmol/L Glucose 201 H (74-99) mg/dL Urine Protein Trace H (Negative)
[2024-11-27 09:05] LABS: ALT 13 U/L (10-49); AST 26 U/L (14-35); Albumin 2.5 g/dL (3.8-4.9); Albumin/Globulin Ratio 0.93 Ratio (1.60-3.17); Alkaline Phosphatase 137 U/L (41-126); BUN/Creat Ratio 10.22 Ratio (12.00-20.00); Blood Urea Nitrogen 9.2 mg/dL (9.0-27.0); Calcium 9.7 mg/dL (8.7-10.3); Carbon Dioxide 27.9 mmol/L (21.6-31.8); Chloride 97 mmol/L (96-109); Globulin 2.7 g/dL (1.6-3.3); Glucose 120 mg/dL (70-110); Potassium 3.7 mmol/L (3.5-5.5); Sodium 137 mmol/L (135-145); Total Bilirubin 0.6 mg/dL (0.3-1.2); Total Protein 5.2 g/dL (6.2-8.2)
[2024-11-27 10:38] LABS: Basophils # (A) 0.03 X 10*3/uL (0.00-0.10); Basophils % (A) 0.3 %; Eosinophils # (A) 0.03 X 10*3/uL (0.04-0.35); Eosinophils % (A) 0.3 %; HCT 30.5 % (39.6-50.0); HGB 9.3 g/dL (13.0-17.0); Lymphocytes # (A) 1.05 X 10*3/uL (0.90-5.00); Lymphocytes % (A) 10.6 %; MCH 25.3 pg (27.0-32.0); MCHC 30.5 g/dL (32.0-37.0); MCV 83.1 FL (80.0-97.0); Mean Platelet Volume 10.1 FL (9.5-12.2); Monocytes # (A) 1.37 X 10*3/uL (0.20-1.00); Monocytes % (A) 13.9 %; NRBC Per 100 WBC 0 X 10*3/uL (0.00-0.01); Neutrophils # (A) 7.32 X 10*3/uL (1.80-7.70); Neutrophils % (A) 74.3 %; Platelet Count 371 X 10*3/uL (140-440); RBC 3.67 X 10*6/uL (4.40-5.60); RDW 13.7 % (11.5-14.5); WBC 9.86 X 10*3/uL (4.50-10.00)
[2024-11-27 12:46] LABS: Erythrocyte Sedimentation Rate 94 mm/Hr (0-20)
--- NOTE | 2024-11-27 13:39 | P.PN ---
Subjective Progress Note Date: 11/27/24 This is a 79-year-old male patient, a very poor historian with underlying dementia who presents from [facility] for bilateral pneumonia. The patient apparently has been feeling sick for the past 1 week at least. Family noted that he has been slightly more confused and he has been having labored breathing and was somewhat tachycardic. Based on that, the patient was started on broad-spectrum antibiotics in the outside facility and he was transferred to us. CAT scan of the brain that was done outside facility showed no acute abnormalities. I repeated the chest x-ray in the emergency department and based on my review, the patient has evidence of COPD and possibility of limited bibasilar pulmonary filtrates cannot be completely ruled out. Viral 4 Plex has been negative. Troponin has been negative. Sodium levels at 135, bicarbonate 33 BUN of 8 creatinine 0.9. LFTs are normal. White cell count of 10 with a hemoglobin 9.4. He was started on broad-spectrum antibiotics and the patient is currently on a combination of cefepime and vancomycin. The patient himself denies having any shortness of breath. He is currently on 2 L of oxygen by nasal cannula with pulse ox of 97%. Afebrile. Hemodynamically stable. Pulse ox on room air is 95%. Cultures were sent. Hospitalized for pneumonia. No edema in lower extremities. He is known to have CAD, hyperlipidemia, hypertension along with history of dementia. He also admits to have a previous neck surgery. He does have an abdominal wall ventral hernia. 11/25/2024, patient is being seen for a follow-up. This 79-year-old male patient, has underlying dementia. He was hospitalized for pneumonia. He did have some limited sensation of the lung base bilaterally and he was placed on a combination of Zosyn and vancomycin. Repeat chest x-ray from today shows some mild residual right lower lobe pulmonary filtrate. Left lower lobe pulmonary filtrate is essentially covered. He is resting comfortably in bed. Remains a poor historian. Remains on 2 L of oxygen by nasal cannula. The white cell count is at 7 with a hemoglobin 9.4. The platelet count is at 351. Sodium is at 138, BUN is at 7.5 with a creatinine of 0.9. Hemodynamically stable. Denies having any complaints. Patient was seen today on 12/06/2024, patient doing much better today, breathing a lot easier, patient is on room air and O2 sat is 92%.WBC count is 9.5 hemoglobin 9.8 electrolytes are normal renal profile is normal, patient had procalcitonin level of 0.25, x-ray showed very limited infiltrate or atelectasis in the right lower lobe, clinically the patient is doing great, relatively asymptomatic, and I believe the patient could be transition to oral antibiotics and discharged home with follow-up on outpatient basis The patient is seen today November 27 2024 in follow-up on the regular medical floor. He is currently resting in bed. Awake and alert in no acute distress. Containing good O2 saturations in the 90s on room air. He is afebrile the past 24 hours. Hemodynamically stable. White count 9.8. Hemoglobin 9.3. Platelets 371. Sodium 137. Potassium 3.7. Bicarb 28. BUN 9. Creatinine 0.9. Glucose 120. Procalcitonin negative at 0.36. He is currently on azithromycin. Heparin for DVT prophylaxis. Objective - Vital Signs Vital signs: Vital Signs Temp 98.6 F 11/27/24 07:39 Pulse 109 H 11/27/24 07:39 Resp 17 11/27/24 12:23 BP 154/71 11/27/24 07:39 Pulse Ox 95 11/27/24 07:39 FiO2 Intake & Output 11/26/24 11/27/24 11/27/24 18:59 06:59 18:59 Intake Total 420 Balance 420 Intake: Oral 420 Other: Voiding Method Toilet Toilet # Voids 3 4 2 - Exam GENERAL: Revealed 79-year-old male, resting comfortably in bed, on room air, in no distress HEENT: PERRLA, EOMI, nonicteric, no neck masses no JVD CARDIOVASCULAR: S1 and S2 present. No murmurs, rubs, or gallops. PULMONARY: Clear throughout no crackles rhonchi or wheezes ABDOMEN: Soft, nontender, nondistended, normoactive bowel sounds. No palpable organomegaly. MUSCULOSKELETAL: No joint swelling or deformity. EXTREMITIES: No cyanosis, clubbing, or pedal edema. NEUROLOGICAL: Alert oriented x 3 no gross focal neurologic deficit SKIN: No rashes. - Labs CBC & Chem 7: 11/27/24 02:06 11/27/24 02:06 Labs: Abnormal Lab Results - Last 24 Hours (Table) 11/27/24 11/27/24 Range/Units 02:06 02:06 RBC 3.67 L (4.40-5.60) X 10*6/uL Hgb 9.3 L (13.0-17.0) g/dL Hct 30.5 L (39.6-50.0) % MCH 25.3 L (27.0-32.0) pg MCHC 30.5 L (32.0-37.0) g/dL Immature Gran # 0.06 H (0.00-0.04) X 10*3/uL Monocytes # 1.37 H (0.20-1.00) X 10*3/uL Eosinophils # 0.03 L (0.04-0.35) X 10*3/uL ESR 94 H (0-20) mm/Hr Anion Gap 12.10 H (4.00-12.00) mmol/L BUN/Creatinine Ratio 10.22 L (12.00-20.00) Ratio Glucose 120 H (70-110) mg/dL Alkaline Phosphatase 137 H (41-126) U/L C-Reactive Protein 21.90 H (0.00-0.80) mg/dL Total Protein 5.2 L (6.2-8.2) g/dL Albumin 2.5 L (3.8-4.9) g/dL Albumin/Globulin Ratio 0.93 L (1.60-3.17) Ratio Assessment and Plan Assessment: Acute COPD exacerbation Possible right lower lobe pneumonia, mostly right lower lobe atelectasis or very limited infiltrate in the right lower lobe, procalcitonin negative Acute hypoxic respiratory failure secondary to above History of underlying dementia Type 2 diabetes with diabetic peripheral neuropathy History of underlying coronary artery disease Benign essential hypertension Ventral abdominal wall hernia Plan: The patient was seen and evaluated Currently stable and on room air Cleared for discharge Plan is for [place] I have personally seen and examined the patient, performed the documentation and the assessment and plan as written. Number of minutes spent on the visit: 10 Dictation was produced using [employer] dictation software. Please excuse any grammatical, word or spelling errors.
[2024-11-27] MEDS: IOPAMIDOL CONTRAST (ORAL USE) VIAL PO PRN (13:46)
--- NOTE | 2024-11-27 15:48 | P.PN ---
Subjective Progress Note Date: 11/27/24 Patient was on 79-year-old male with known history of dementia with baseline mental status alert oriented x 3 and presently alert oriented x 3 was transferred from [facility] as he had some altered mental status today and was believed to have bilateral pneumonia. Patient apparently had fever yes terday patient had a chest x-ray here which showed likely atelectasis in the right lower lobe. Patient does not have any labored breathing at this time. Patient was started on cefepime and vancomycin was subsequently transferred here patient is able to provide good history to me. Cultures were sent. Patient had a CAT scan of the brain that was done at outside hospital which is essentially within normal limits no acute changes. 11/25/2024 Patient evaluated today in follow up on the medical floor. Shortness of breath has improved. He does report feeing chills and febrile. Although there have been no documented fevers. He is currently on room air. 11/26/2024 Patient evaluated today in follow up resting in bed. Continues to have intermittent fevers. Was weaned to room air with oxygen saturations of 92%. Pending PT evaluation. White blood cell count 9.5. Urinalysis negative. 11/27/2024 Patient evaluated today in follow up on the medical floor. Resting in bed comfortably. Fevers have resolved. Currently pending abdominal pelvis CT. He remains on room air. Continues on short course of oral azithromycin. ID following. Review of Systems Constitutional: Denied any fatigue denied any fever. Cardio vascular: denied any chest pain, palpitations Gastrointestinal: denied any nausea, vomiting, diarrhea Pulmonary: Denied any shortness of breath cough Neurologic denied any new focal deficits All inpatient medications were reviewed and appropriate changes in these medications as dictated in the interval history and assessment and plan. PHYSICAL EXAMINATION: GENERAL: The patient is alert and oriented x2, not in any acute distress. Well developed, well nourished. HEENT: Pupils are round and equally reacting to light. EOMI. No scleral icterus. No conjunctival pallor. Normocephalic, atraumatic. No pharyngeal erythema. No thyromegaly. CARDIOVASCULAR: S1 and S2 present. No murmurs, rubs, or gallops. PULMONARY: Chest is clear to auscultation, no wheezing or crackles. ABDOMEN: Soft, nontender, nondistended, normoactive bowel sounds. No palpable organomegaly. MUSCULOSKELETAL: No joint swelling or deformity. EXTREMITIES: No cyanosis, clubbing, or pedal edema. NEUROLOGICAL: Gross neurological examination did not reveal any focal deficits. SKIN: No rashes. Assessment and plan -Altered mental status probably secondary to fever which resolved at this time. -Possibility of pneumonia: There is right lower lung field atelectasis and cannot rule out pneumonia procalcitonin 0.25, patient currently on azithromycin, incentive spirometry will be ordered -Dementia patient mental status at this time is at his baseline patient appears to have moderate dementia -Coronary disease -Type 2 diabetes mellitus -Hypertension -Diabetic peripheral neuropathy for which patient is on gabapentin which will make it as needed as patient confusion improved DVT prophylaxis: Subcutaneous heparin Pending PT/OT evaluation and discharge planning patient will likely require subacute rehab. ID consulted as patient continues to have intermittent fevers. Pending CT results. The impression and plan of care has been dictated by Yessica Wiley Nurse Practitioner as directed. Dr. Terri MD I have performed a history and physical examination and medical decision making of this patient, discussed the same with the dictator, and agree with the dictators assessment and plan as written, documented as a scribe. Based on total visit time, I have performed more than 50% of this visit. Objective - Vital Signs Vital signs: Vital Signs Temp 98.7 F 11/27/24 14:46 Pulse 112 H 11/27/24 14:46 Resp 18 11/27/24 14:46 BP 154/87 11/27/24 14:46 Pulse Ox 92 L 11/27/24 14:46 FiO2 Intake & Output 11/26/24 11/27/24 11/27/24 18:59 06:59 18:59 Intake Total 420 Balance 420 Intake: Oral 420 Other: Voiding Method Toilet Toilet # Voids 3 4 2 - Labs CBC & Chem 7: 11/27/24 02:06 11/27/24 02:06 Labs: Abnormal Lab Results - Last 24 Hours (Table) 11/27/24 11/27/24 Range/Units 02:06 02:06 RBC 3.67 L (4.40-5.60) X 10*6/uL Hgb 9.3 L (13.0-17.0) g/dL Hct 30.5 L (39.6-50.0) % MCH 25.3 L (27.0-32.0) pg MCHC 30.5 L (32.0-37.0) g/dL Immature Gran # 0.06 H (0.00-0.04) X 10*3/uL Monocytes # 1.37 H (0.20-1.00) X 10*3/uL Eosinophils # 0.03 L (0.04-0.35) X 10*3/uL ESR 94 H (0-20) mm/Hr Anion Gap 12.10 H (4.00-12.00) mmol/L BUN/Creatinine Ratio 10.22 L (12.00-20.00) Ratio Glucose 120 H (70-110) mg/dL Alkaline Phosphatase 137 H (41-126) U/L C-Reactive Protein 21.90 H (0.00-0.80) mg/dL Total Protein 5.2 L (6.2-8.2) g/dL Albumin 2.5 L (3.8-4.9) g/dL Albumin/Globulin Ratio 0.93 L (1.60-3.17) Ratio Assessment and Plan Time with Patient: Less than 30
--- NOTE | 2024-11-27 15:57 | CT ---
EXAMINATION TYPE: CT abdomen pelvis w con DATE OF EXAM: 11/27/2024 COMPARISON: None CLINICAL INDICATION: Male, 79 years old with history of Fever; PHH, FEVER TECHNIQUE: Performed with Oral Contrast and with IV Contrast, patient injected with 100ml mL of Isovue 300. CT DLP: 1337.[address] CTDI: mGy Automated exposure control for dose reduction was used. FINDINGS: There are mild emphysematous changes in the lung bases. There is a single micronodule and a 5 mm nodule in the right lung base. The gallbladder is normal without distention, wall thickening, pericholecystic fluid or gallstones. T here is no biliary ductal dilatation. There are 3 hypodense ill-defined masses in the right lobe of the liver with subtle peripheral enhanc ement largest of which is approximate 4 cm. The remaining 2 measure 3.5 and 2.7 cm. These could repre sent benign hemangiomas but etiology is indeterminate and further evaluation is warranted. MRI of the liver with contrast according to the liver protocol is recommended. There is no solid renal mass or hydronephrosis and there is homogeneous contrast enhancement of the r enal parenchyma. Multiple simple cortical cysts of both kidneys, right greater than left. The largest cyst on the right is exophytic and measures approximately 6 cm. The caliber the abdominal aorta is normal is no retroperitoneal adenopathy or hemorrhage. The bowel loops are normal in caliber and there is no evidence of dilatation or obstruction. No infla mmatory changes are identified in the bowel wall or mesentery. There is no free intraperitoneal air or fluid. No pelvic mass, free fluid, abscess or adenopathy. The osseous structures and soft tissues are intact. IMPRESSION: 1. Multiple liver masses as described above. These could represent benign hemangiomas however further workup is warranted since neoplasm cannot be excluded based on this exam.. MRI of the liver with con trast according to the MRI liver protocol is recommended for further evaluation. 2. 5 mm nodule in the right lung base. If this is a high risk patient then CT thorax is recommended i n 6 months to confirm stability. [facility], , 11/27/2024 3:55 PM
[2024-11-27] MEDS: IBUPROFEN 400 MG TAB PO PRN (20:35)
[2024-11-27] MEDS: QUEtiapine 25 MG TAB PO SCH (21:15)
--- NOTE | 2024-11-28 07:44 | P.PN ---
Subjective Progress Note Date: 11/27/24 Principal diagnosis: Reason for follow-up is fever Patient is a 79-year-old male with a past medical history significant for coronary disease diabetes mellitus hypertension hyperlipidemia anxiety depression presenting to the hospital for evaluation of altered mentation and hypoxemia, initially concern for possible pneumonia did have a fever prompting this consultation. On today's evaluation that is 11/27/2023, Patient is afebrile this morning patient denies having any chest pain shortness of breath did have vaginal cough, the patient is currently on room air, patient denies any abdominal pain no diarrhea no nausea no vomiting. Patient white count is 9.86 creatinine is 0.9 urine is negative Pro-Jovanni's is 0.36 Objective - Vital Signs Vital signs: Vital Signs Temp 98.7 F 11/27/24 14:46 Pulse 112 H 11/27/24 14:46 Resp 18 11/27/24 14:46 BP 154/87 11/27/24 14:46 Pulse Ox 92 L 11/27/24 14:46 FiO2 Intake & Output 11/26/24 11/27/24 11/27/24 18:59 06:59 18:59 Intake Total 420 Balance 420 Intake: Oral 420 Other: Voiding Method Toilet Toilet # Voids 3 4 2 - Exam GENERAL DESCRIPTION: An elderly male lying in bed in no distress RESPIRATORY SYSTEM: Unlabored breathing , decreased breath sounds at bases HEART: S1 S2 regular rate and rhythm , ABDOMEN: Soft , no tenderness EXTREMITIES: No edema feet - Labs CBC & Chem 7: 11/27/24 02:06 11/27/24 02:06 Labs: Abnormal Lab Results - Last 24 Hours (Table) 11/27/24 11/27/24 Range/Units 02:06 02:06 RBC 3.67 L (4.40-5.60) X 10*6/uL Hgb 9.3 L (13.0-17.0) g/dL Hct 30.5 L (39.6-50.0) % MCH 25.3 L (27.0-32.0) pg MCHC 30.5 L (32.0-37.0) g/dL Immature Gran # 0.06 H (0.00-0.04) X 10*3/uL Monocytes # 1.37 H (0.20-1.00) X 10*3/uL Eosinophils # 0.03 L (0.04-0.35) X 10*3/uL ESR 94 H (0-20) mm/Hr Anion Gap 12.10 H (4.00-12.00) mmol/L BUN/Creatinine Ratio 10.22 L (12.00-20.00) Ratio Glucose 120 H (70-110) mg/dL Alkaline Phosphatase 137 H (41-126) U/L C-Reactive Protein 21.90 H (0.00-0.80) mg/dL Total Protein 5.2 L (6.2-8.2) g/dL Albumin 2.5 L (3.8-4.9) g/dL Albumin/Globulin Ratio 0.93 L (1.60-3.17) Ratio Assessment and Plan (1) Fever Current Visit: Yes Status: Acute Code(s): R50.9 - FEVER, UNSPECIFIED SNOMED Code(s): 139819727 Plan: 1patient with a fever in this patient with initial presentation to the [facility] concerning for fever and shortness of breath and there was concern for possible right lower lobe infiltrate and a question of possible pneumonia however antibiotics have been discontinued, patient currently denies any other obvious focus for this fever urine has been negative no evidence of any cellulitis and tested negative for COVID and influenza 2-blood culture has been obtained which are currently pending Dictation was produced using [employer] software. please excuse any grammatical, word or spelling errors.
--- NOTE | 2024-11-28 13:40 | P.DS ---
Providers Date of admission: 11/24/24 04:19 Attending physician: Cecilio Boo Consults: 11/24/24 04:19 Consult Physician Routine Consulting Provider: Guicho Petersen Consult Reason/Comments: hypoxic resp failure, pneumonia Do you want consulting provider notified?: Yes 11/26/24 13:55 Consult Physician Routine Consulting Provider: Nate Lima Consult Reason/Comments: fever Do you want consulting provider notified?: Yes Primary care physician: Stated None Hospital Course: Final Diagnosis -Altered mental status probably secondary to fever which resolved at this time. -Possibility of pneumonia: There is right lower lung field atelectasis and cannot rule out pneumonia procalcitonin 0.25 -Dementia patient mental status at this time is at his baseline patient appears to have moderate dementia -Multiple liver mass rule out benign hemangioma vs. metastatic disease -5 mm right lower lung nodule -Coronary disease -Type 2 diabetes mellitus -Hypertension -Diabetic peripheral neuropathy for which patient is on gabapentin which will make it as needed as patient confusion improved Discharge Disposition Patient is stable for discharge to subacute rehab. Continue home medications. Follow up with PCP Rina Jackson CUSTOMIZER-C. As mentioned patient needs liver MRI which can be done as an outpatient basis. Also need follow up chest CT for the lung nodule. Continue incentive spirometer 10 x an hour while awake. Hospital Course Patient was on 79-year-old male with known history of dementia with baseline mental status alert oriented x 3 and presently alert oriented x 3 was transferred from [facility] as he had some altered mental status and was believed to have bilateral pneumonia. Patient apparently had fever day before admission patient had a chest x-ray here which showed likely atelectasis in the right lower lobe. Patient does not have any labored breathing at this time. Patient was started on cefepime and vancomycin was subsequently transferred to [facility]. Cultures were sent. Patient had a CAT scan of the brain that was done at outside hospital which is essentially within normal limits no acute changes. He continued to report fever chills. ID was consulted. Completed course of IV rocephin and oral azithromycin. He is now afebrile. Abdomen pelvis CT was done to rule out underlying infectious process findings of multiple liver masses could be benign hemangiomas however unable to rule out metastatic disease. Patient can follow up with his PCP and recommending an outpatient liver MRI on follow up. Additionally there is mention of 5 mm nodule in the right lung base patient should have a chest CT completed in 6 months to monitor. Recommend pulmonary follow up. Patient today is awake alert oriented. No acute complaints. No chest pain or shortness of breath. He is currently afebrile. He will be discharged to subacute rehab. Please see medication reconciliation for a list of current medications. Thank you for allowing us to participate in the care of this patient. The impression and plan of care has been dictated by Yessica Wiley Nurse Practitioner as directed. Dr. Terri MD I have performed a history and physical examination and medical decision making of this patient, discussed the same with the dictator, and agree with the dictators assessment and plan as written, documented as a scribe. Based on total visit time, I have performed more than 50% of this visit. Patient Condition at Discharge: Fair Plan - Discharge Summary Discharge Rx Participant: No New Discharge Prescriptions: Continue amLODIPine [Norvasc] 2.5 mg PO DAILY Simvastatin [Zocor] 80 mg PO DAILY Gabapentin [Neurontin] 400 mg PO BID Citalopram Hydrobromide [CeleXA] 20 mg PO DAILY traMADol HCL 50 mg PO BID 2 Days #4 tab metFORMIN HCL 500 mg PO DAILY allopurinoL [Zyloprim] 100 mg PO DAILY Metoprolol Succinate (ER) [Toprol XL] 100 mg PO DAILY Discharge Medication List Citalopram Hydrobromide [CeleXA] 20 mg PO DAILY 11/24/24 [History] Gabapentin [Neurontin] 400 mg PO BID 11/24/24 [History] Metoprolol Succinate (ER) [Toprol XL] 100 mg PO DAILY 11/24/24 [History] Simvastatin [Zocor] 80 mg PO DAILY 11/24/24 [History] allopurinoL [Zyloprim] 100 mg PO DAILY 11/24/24 [History] amLODIPine [Norvasc] 2.5 mg PO DAILY 11/24/24 [History] metFORMIN HCL 500 mg PO DAILY 11/24/24 [History] traMADol HCL 50 mg PO BID 2 Days #4 tab 11/28/24 [Rx] Follow up Appointment(s)/Referral(s): None,Stated [Primary Care Provider] - 1-2 days Ambulatory/Diagnostic Orders: Basic Metabolic Panel [LAB.AMB] Location: None Selected Complete Blood Count w/diff [LAB.AMB] Time Frame: 3 Days, Location: None Selected
--- NOTE | 2024-11-28 14:14 | P.PN ---
Subjective Progress Note Date: 11/28/24 This is a 79-year-old male patient, a very poor historian with underlying dementia who presents from [facility] for bilateral pneumonia. The patient apparently has been feeling sick for the past 1 week at least. Family noted that he has been slightly more confused and he has been having labored breathing and was somewhat tachycardic. Based on that, the patient was started on broad-spectrum antibiotics in the outside facility and he was transferred to us. CAT scan of the brain that was done outside facility showed no acute abnormalities. I repeated the chest x-ray in the emergency department and based on my review, the patient has evidence of COPD and possibility of limited bibasilar pulmonary filtrates cannot be completely ruled out. Viral 4 Plex has been negative. Troponin has been negative. Sodium levels at 135, bicarbonate 33 BUN of 8 creatinine 0.9. LFTs are normal. White cell count of 10 with a hemoglobin 9.4. He was started on broad-spectrum antibiotics and the patient is currently on a combination of cefepime and vancomycin. The patient himself denies having any shortness of breath. He is currently on 2 L of oxygen by nasal cannula with pulse ox of 97%. Afebrile. Hemodynamically stable. Pulse ox on room air is 95%. Cultures were sent. Hospitalized for pneumonia. No edema in lower extremities. He is known to have CAD, hyperlipidemia, hypertension along with history of dementia. He also admits to have a previous neck surgery. He does have an abdominal wall ventral hernia. 11/25/2024, patient is being seen for a follow-up. This 79-year-old male patient, has underlying dementia. He was hospitalized for pneumonia. He did have some limited sensation of the lung base bilaterally and he was placed on a combination of Zosyn and vancomycin. Repeat chest x-ray from today shows some mild residual right lower lobe pulmonary filtrate. Left lower lobe pulmonary filtrate is essentially covered. He is resting comfortably in bed. Remains a poor historian. Remains on 2 L of oxygen by nasal cannula. The white cell count is at 7 with a hemoglobin 9.4. The platelet count is at 351. Sodium is at 138, BUN is at 7.5 with a creatinine of 0.9. Hemodynamically stable. Denies having any complaints. Patient was seen today on 12/06/2024, patient doing much better today, breathing a lot easier, patient is on room air and O2 sat is 92%.WBC count is 9.5 hemoglobin 9.8 electrolytes are normal renal profile is normal, patient had procalcitonin level of 0.25, x-ray showed very limited infiltrate or atelectasis in the right lower lobe, clinically the patient is doing great, relatively asymptomatic, and I believe the patient could be transition to oral antibiotics and discharged home with follow-up on outpatient basis The patient is seen today November 27 2024 in follow-up on the regular medical floor. He is currently resting in bed. Awake and alert in no acute distress. Containing good O2 saturations in the 90s on room air. He is afebrile the past 24 hours. Hemodynamically stable. White count 9.8. Hemoglobin 9.3. Platelets 371. Sodium 137. Potassium 3.7. Bicarb 28. BUN 9. Creatinine 0.9. Glucose 120. Procalcitonin negative at 0.36. He is currently on azithromycin. Heparin for DVT prophylaxis. The patient is seen today November 28, 2024 in follow-up on the regular medical floor. He is currently sitting up in a chair. Awake and alert in no acute distress. He is maintaining good O2 saturations in the 90s on room air. He is continued on DuoNeb and elations. Heparin for DVT prophylaxis. CT scan of the abdomen pelvis revealed audible liver masses representing benign hemangiomas versus neoplasm. 5 mm nodule in the right lung base. Blood culture revealed no growth. No new labs today. Objective - Vital Signs Vital signs: Vital Signs Temp 98.7 F 11/28/24 07:24 Pulse 98 11/28/24 07:24 Resp 17 11/28/24 07:24 BP 120/64 11/28/24 07:24 Pulse Ox 91 L 11/28/24 07:24 FiO2 Intake & Output 11/27/24 11/28/24 11/28/24 18:59 06:59 18:59 Intake Total 540 Balance 540 Intake: Oral 540 Other: Voiding Method Toilet Toilet Toilet Diaper Diaper # Voids 2 9 1 - Exam GENERAL: Revealed an oriented, pleasant 79-year-old male, sitting up in a chair, on room air, in no distress HEENT: PERRLA, EOMI, nonicteric, no neck masses no JVD CARDIOVASCULAR: S1 and S2 present. No murmurs, rubs, or gallops. PULMONARY: Clear throughout no crackles rhonchi or wheezes ABDOMEN: Soft, nontender, nondistended, normoactive bowel sounds. No palpable organomegaly. MUSCULOSKELETAL: No joint swelling or deformity. EXTREMITIES: No cyanosis, clubbing, or pedal edema. NEUROLOGICAL: Alert oriented x 3 no gross focal neurologic deficit SKIN: No rashes. - Labs CBC & Chem 7: 11/27/24 02:06 11/27/24 02:06 Labs: Microbiology - Last 24 Hours (Table) 11/26/24 14:10 Blood Culture - Preliminary Blood Assessment and Plan Assessment: Acute COPD exacerbation recovered Possible right lower lobe atelectasis or very limited infiltrate in the right lower lobe, procalcitonin negative, completed azithromycin Acute hypoxic respiratory failure secondary to above recovered and on room air 5 mm right lower lobe pulmonary nodule to be followed in the outpatient setting History of underlying dementia Type 2 diabetes with diabetic peripheral neuropathy History of underlying coronary artery disease Benign essential hypertension Ventral abdominal wall hernia Plan: The patient was seen and evaluated CT scan of the abdomen and pelvis reviewed Currently stable and on room air Plan is for [facility] This patient was seen independently by the pulmonary nurse practitioner addressing pulmonary issues I have personally seen and examined the patient, performed the documentation and the assessment and plan as written. Number of minutes spent on the visit: 24 Dictation was produced using [employer] dictation software. Please excuse any grammatical, word or spelling errors.
[2024-11-28 15:18] VITALS: BP 145/72; PULSE 110; RESP 18; TEMP 98
--- NOTE | 2024-11-30 09:21 | CDI ---
Documentation Clarification Form Date: 11/30/24 From: Tori Jimenes Admit Date: 11/24/2024 04:19:00 AM Patient Name: Swapnil Anderson Visit Number: [id number] Discharge Date: 11/28/2024 05:20:00 PM ATTENTION: The Clinical Documentation Specialists (CDI) and [facility] Coding Staff appreciate your assistance in clarifying documentation. Please respond to the clarification below the line at the bottom and electronically sign. The CDI & [facility] Coding staff will review the response and follow-up if needed. Please note: Queries are made part of the Legal Health Record. If you have any questions, please contact the author of this message via ITS. Doctor/Provider: Serenity Murray, Sepsis is documented in which may lack sufficient clinical evidence/support in the medical record. Additional clarification is requested. History/Risk Factors: CAD, DM, HLD, HTNK, ANABELA, history of smoking Clinical Indicators: Transferred from another hospital after being diagnosed with sepsis and pneumonia. Met 2 SIRS criteria: fever and tachycardia and increased work of breathing at the outside facility. Acute respiratory failure with hypoxia. Altered mental status. 11/25: WBC 13.16, Neutrophils 7.85, and Preliminary BC: No growth Treatment: IV Vancomycin, IV Cefepime, Azithromycin PO After work up and study, please clarify which diagnosis is most appropriate? [ x ] Sepsis ruled out [ ] Sepsis is a valid diagnosis and present on admission as evidence by the following: (Please add rationale): [ ] Sepsis is a valid diagnosis and present on admission with SIRS due to with organ dysfunction as evidenced by [list organ dysfunction] [ ] Other, please specify [ ] Unable to determine MTDD
== END 2024-11-28 17:20 | DRG 190 ==
LOC: EC 03:37 → 4SSUR 04:19
PROVIDERS: ADMIT Hospitalist; ATTEND Hospitalist
DX: J44.0 Chronic obstructive pulmonary disease with (acute) lower respiratory infection (principal); J18.9 Pneumonia, unspecified organism; J96.01 Acute respiratory failure with hypoxia; J98.11 Atelectasis; F03.B3 Unspecified dementia, moderate, with mood disturbance; F03.B4 Unspecified dementia, moderate, with anxiety; J44.1 Chronic obstructive pulmonary disease with (acute) exacerbation; F32.A Depression, unspecified; R16.0 Hepatomegaly, not elsewhere classified; R91.1 Solitary pulmonary nodule; E11.42 Type 2 diabetes mellitus with diabetic polyneuropathy; I25.10 Atherosclerotic heart disease of native coronary artery without angina pectoris; E78.5 Hyperlipidemia, unspecified; Z66 Do not resuscitate; K43.9 Ventral hernia without obstruction or gangrene; I10 Essential (primary) hypertension; Z87.891 Personal history of nicotine dependence; Z79.84 Long term (current) use of oral hypoglycemic drugs; Z79.899 Other long term (current) drug therapy
CPT/HCPCS: 36415; 71045; 71046; 74177; 80048; 80053; 81003; 83605; 84145; 84484; 85025; 85652; 86140; 87040; 87636; 93005; 94640; 94760; 96365; 96366; 96367; 96372; 99291